=== PATIENT | male | born 1995 | race Caucasian/White ===

== ENCOUNTER 2016-10-30 09:38 | Emergency (ER) | payer BC ==
[~2016-10-30] VITALS: Ht 175.3 cm; Wt 77.3 kg
[2016-10-30 10:39] LABS: ADD MIUA? YES; BILIRUBIN NEGATIVE; BLOOD SMALL; COLOR YELLOW ((YELLOW)); GLUCOSE (STRIP) NEGATIVE; KETONES NEGATIVE; LEUKOCYTES NEGATIVE; NITRITE NEGATIVE; PROTEIN (STRIP) NEGATIVE; SPECIFIC GRAVITY 1.012 (1.000-1.030); UROBILINOGEN 0.2 MG/DL (0.2-1.0)
[2016-10-30 10:41] LABS: BACTERIA NONE SEEN /HPF; EPITHELIAL CELLS NONE SEEN /HPF; MUCUS TRACE /LPF; RED BLOOD CELLS 0-5 /HPF (0-5); UCUL ADDED? NO; WHITE BLOOD CELLS 0-5 /HPF (0-5)
[2016-10-30 11:16] LABS: EOSINOPHIL COUNT 0.2 K/uL (0-0.3); HEMATOCRIT 42.3 % (38.0-50.0); IMMATURE GRANULOCYTE (%) 0.1 % (0.0-0.7); INSTRUMENT ABS NEUTROPHIL CT 3.8 K/uL; LYMPHOCYTE COUNT 2.9 K/uL (1.0-2.8); MCH 29.8 PG (29.0-34.0); MCV 85.3 FL (86-99); MEAN PLAT.VOLUME 9.7 uM^3 (9.0-12.4); MONOCYTE COUNT 0.4 K/uL (0-0.8); NEUTROPHIL (%) 52.3 % (45-76); NEUTROPHIL COUNT 3.8 K/uL (1.8-6.4); PLATELET COUNT 214 K/uL (156-360); RBC DIS.WIDTH-SD 37.4 % (39-53); RED BLOOD COUNT 4.96 M/uL (4.00-5.50); WHITE BLOOD COUNT 7.3 K/uL (4.1-10.2)
[2016-10-30 11:27] LABS: CHLORIDE 103 mEq/L (99-109); POTASSIUM 3.9 mEq/L (3.7-5.4); SODIUM 139 mEq/L (136-147)
[2016-10-30 11:30] LABS: GLUCOSE 90 mg/dL (70-99)
[2016-10-30 11:31] LABS: ANION GAP 8 MEQ/L (2-14)
[2016-10-30 11:32] LABS: TOTAL BILIRUBIN 0.8 mg/dL (0.0-1.0)
[2016-10-30 11:33] LABS: ALKALINE PHOSPHATASE 73 IU/L (3-129); GFR ESTIMATE (CALCULATED) > 59 mL/min/
[2016-10-30 11:34] LABS: UREA NITROGEN (BUN) 13 mg/dL (9-23)
[2016-10-30 11:37] LABS: LIPASE 12 U/L (1.0-51.0)
[2016-10-30] MEDS ORDERED: ZOFRAN ODT4 MG PO (13:26)
[2016-10-30] MEDS ORDERED: BENTYL20 MG PO (13:26)
[2016-10-30 14:16] VITALS: BP 108/66
== END 2016-10-30 14:17 | disposition home or self-care (01) ==
LOC: EME 09:38
PROVIDERS: Emergency Medicine
DX: R10.30 Lower abdominal pain, unspecified (principal); R11.0 Nausea; R19.7 Diarrhea, unspecified
CPT/HCPCS: 80053; 81003; 83690; 85025; 99281; 99285; J2405; J3010; J7030

== ENCOUNTER 2017-04-13 14:14 | Emergency (ER) | payer OTHER, BC ==
[~2017-04-13] VITALS: Ht 175.3 cm; Wt 78.6 kg
[~2017-04-13 14:14] MED LIST: BENTYL20 MG PO; ZOFRAN ODT4 MG PO
[2017-04-13] MEDS ORDERED: MOTRIN600 MG PO (15:54)
[2017-04-13 16:31] VITALS: BP 124/89
== END 2017-04-13 16:32 | disposition home or self-care (01) ==
LOC: EME 14:14
DX: S39.012A Strain of muscle, fascia and tendon of lower back, initial encounter (principal); V43.52XA Car driver injured in collision with other type car in traffic accident, initial encounter; Y92.488 Other paved roadways as the place of occurrence of the external cause
CPT/HCPCS: 99281; 99283